=== PATIENT | female | born 1985 | race Two or more races ===

== ENCOUNTER 2020-09-11 11:35 | Emergency (ER) | payer BC, OTHER ==
[~2020-09-11] VITALS: Ht 162.6 cm; Wt 59.0 kg
[2020-09-11] MEDS ORDERED: ASPirin 81 mg TAB PO ONE (11:45)
[2020-09-11 12:34] LABS: Basophils # (auto) 0.1 10 ^3/uL (0-0.2); Eosinophils # (auto) 0.5 10 ^3/uL (0-0.8); Eosinophils % (auto) 5.8 % (0.0-7.0); Hematocrit 37.5 % (36.0-46.0); Hemoglobin 12.6 g/dL (12.2-16.2); Lymphocytes # (auto) 2.9 10 ^3/uL (0.4-5.4); Lymphocytes % (auto) 36.8 % (10.0-50.0); Mean Corpuscular Hemoglobin 29.6 pg (28.0-32.0); Mean Corpuscular Hgb Conc. 33.7 g/dL (32.0-36.0); Mean Corpuscular Volume 87.7 fL (80.0-100.0); Monocytes # (auto) 0.5 10 ^3/uL (0-1.3); Monocytes % (auto) 6.3 % (0.0-12.0); Neutrophils # (auto) 3.9 10 ^3/uL (1.6-8.6); Neutrophils % (auto) 50.1 % (37.0-80.0); Nucleated Red Blood Cells % 0.1 %; Platelet Count (auto) 229 10^3/uL (140-450); Red Blood Cells 4.27 10^6/uL (4.0-5.20); Red Cell Distribution Width 13.7 % (11.8-14.3); White Blood Cell 7.9 10^3/uL (4.4-10.8)
[2020-09-11 12:52] LABS: Albumin 3.5 g/dL (3.4-5.0); Anion Gap 7 (5-15); Blood Urea Nitrogen 14 mg/dL (7-18); Calcium 8.6 mg/dL (8.5-10.1); Carbon Dioxide 25 mmol/L (21-32); Chloride 106 mmol/L (98-107); Glucose 82 mg/dL (74-106); Potassium 3.7 mmol/L (3.5-5.1); Sodium 138 mmol/L (136-145)
[2020-09-11 13:01] LABS: Alanine Aminotransferase 19 U/L (13-56); Alkaline Phosphatase 60 U/L (45-117); Aspartate Aminotransferase 13 U/L (15-37); BUN/Creatinine Ratio 25.9; Bilirubin, Total 0.7 mg/dL (0.2-1.0); CRP High Sensitivity 1.17 mg/dL (< 0.3); GFR African American 167 mL/min; GFR Non-African American 138 mL/min; Total Protein 7.7 g/dL (6.4-8.2)
[2020-09-11 14:00] VITALS: BP 98/64
== END 2020-09-11 15:09 | disposition home or self-care (01) ==
LOC: ER 11:35
DX: R07.89 Other chest pain (principal); Z20.822 Contact with and (suspected) exposure to COVID-19
CPT/HCPCS: 36415; 71045; 80053; 82728; 84484; 85025; 85379; 86141; 87426; 93005